=== PATIENT | female | born 1960 | race American Indian/Alaskan Native ===

== ENCOUNTER 2018-11-04 15:18 | Outpatient (CLI) | payer OTHER ==
--- NOTE | 2018-11-04 16:03 | Mammography Report ---
BILATERAL DIGITAL SCREENING MAMMOGRAM with CAD: 11/04/18 15:18:00 CLINICAL: Routine screening. COMPARISON:08/27/09 FINDINGS: The breasts are heterogeneously dense, which may obscure small masses and the breast density is sufficient to limit the sensitivity of mammography. No mass, architectural distortion or suspicious calcifications. IMPRESSION: No mammographic evidence of malignancy. BI-RADS CATEGORY: 1 - - Negative RECOMMENDATION: Routine mammographic screening in one year. COMMENT: Patient follow-up letters are generated by our [employer] application.
== END 2018-11-04 15:19 | disposition home or self-care (01) ==
LOC: SPVWC 15:18
PROVIDERS: ATTEND Nurse Practitioner Family
DX: Z12.31 Encounter for screening mammogram for malignant neoplasm of breast (principal); J45.909 Unspecified asthma, uncomplicated; M19.90 Unspecified osteoarthritis, unspecified site; Z90.710 Acquired absence of both cervix and uterus
CPT/HCPCS: 77067

== ENCOUNTER 2020-11-13 21:24 | Emergency (ER) | payer OTHER ==
[2020-11-13 22:09] LABS: Basophils % (Auto) 0.7 % (0.0-1.8); Hematocrit 37.7 % (30.3-42.9); Hemoglobin 12.4 gm/dl (10.1-14.3); Lymphocytes # (Auto) 1.4 K/mm3 (1.2-5.4); Lymphocytes % (Auto) 38.5 % (13.4-35.0); Mean Corpuscular HGB Conc 33 % (30-34); Mean Corpuscular Volume 96 fl (79-97); Monocytes # (Auto) 0.5 K/mm3 (0.0-0.8); Monocytes % (Auto) 12.1 % (0.0-7.3); Platelet Count 169 K/mm3 (140-440); Red Blood Count 3.92 M/mm3 (3.65-5.03); Red Cell Distribution Width 13.8 % (13.2-15.2)
[2020-11-13] MEDS ORDERED: HYDROcodone/ACETAMINOPHEN 5-325 MG TAB PO ONE (22:19)
[2020-11-13] MEDS ORDERED: predniSONE 20 MG TAB PO ONE (22:19)
[2020-11-13] MEDS ORDERED: ONDANSETRON 4 MG ODT TAB PO ONE (22:20)
[2020-11-13 22:28] LABS: Alanine Aminotransferase 34 units/L (7-56); Albumin 3.8 g/dL (3.9-5); BUN/Creatinine Ratio 9; Blood Urea Nitrogen 9 mg/dL (7-17); Calcium 8.6 mg/dL (8.4-10.2); Hemolysis Index 5
--- NOTE | 2020-11-14 00:27 | Emergency Department Report ---
ED Extremity Problem HPI - General Chief complaint: Extremity Injury, Lower Stated complaint: SWOLLEN ANKLES/FEET PAIN Source: patient Mode of arrival: Ambulatory Limitations: Physical Limitation - History of Present Illness Initial comments: Patient is a 60-year-old -[place] female with a history of chronic osteoarthritis, chronic back pain, fibromyalgia, asthma and migraine headaches who presents to the ED with complaint of acute exacerbation of her chronic back pain, bilateral ankle pain and swelling that radiates proximally to the bilateral calves for the last 2 weeks, worse in the last 2 days. Patient states that she takes gabapentin 600 mg 3 times a day for her chronic pain and also takes salicylate 500 mg tablets at home. Patient states that she had been taking these medications with no relief. Patient denies dizziness, syncope, chest pain, shortness of breath, abdominal pain, fall, traumatic injury, heavy lifting, nausea, vomiting, numbness and tingling or weakness of upper and lower extremities bilaterally, saddle paresthesia, urinary retention, bowel incontinence, fever and chills. MD Complaint: extremity pain (Bilateral ankle pain and swelling), extremity swelling (Bilateral ankle swelling and pain), joint swelling (Bilateral ankle), joint paint (Bilateral ankle), other (Bilateral lower leg pain) -: Sudden, week(s) (1) Location: bilateral lower extremity History of Same: Yes (chronic pain due to osteoarthritis and Fibromyalgia) -: No myalgia, Yes arthralgia, No fever, No associated dyspnea, No associated chest pain Radiation: proximal, distal Severity scale (0 -10): 10 Quality: aching, sharp Consistency: constant Improves with: nothing Worsens with: weight bearing, walking, exertion, palpation Associated Symptoms: denies other symptoms, arthralgias. denies: chest pain, shortness of breath, fever, myalgias, rash - Related Data Home Medications Medication Instructions Recorded Confirmed Last Taken Beclomethasone Dipropionat(Nf) 1 inhalation INHALATION BID 08/20/14 08/24/14 08/24/14 05:30 [Qvar 40MCG] 1 Fluticasone/Salmeterol [Advair 1 inhalation INHALATION BID 08/20/14 08/24/14 1 05:30 Diskus 250-50 mcg] 1 SUMAtriptan SUCCINATE [Imitrex] 1 tab PO PRN PRN 08/21/14 08/21/14 Unknown Previous Rx's Medication Instructions Recorded Last Taken Type Baclofen 20 mg PO Q8H PRN #24 tablet 11/14/20 Unknown Rx Naproxen 500 mg PO Q12H PRN #30 tablet 11/14/20 Unknown Rx predniSONE [Deltasone] 40 mg PO QDAY #12 tab 11/14/20 Unknown Rx traMADoL [Ultram] 50 mg PO Q6HR PRN #12 tablet 11/14/20 Unknown Rx Allergies Allergy/AdvReac Type Severity Reaction Status Date / Time sulfamethoxazole Allergy Rash Verified 08/20/14 13:12 [From ] trimethoprim [From ] Allergy Rash Verified 08/20/14 13:12 ED Review of Systems ROS: Stated complaint: SWOLLEN ANKLES/FEET PAIN Other details as noted in HPI Constitutional: denies: chills, fever Eyes: denies: eye pain, eye discharge, vision change ENT: denies: ear pain, throat pain Respiratory: denies: cough, shortness of breath, wheezing Cardiovascular: denies: chest pain, palpitations Endocrine: no symptoms reported Gastrointestinal: denies: abdominal pain, nausea, diarrhea Genitourinary: denies: urgency, dysuria, discharge Musculoskeletal: joint swelling (Bilateral ankle swelling), arthralgia (Bilateral lower extremity pain with swelling bilateral ankle joints). denies: back pain, myalgia Skin: denies: rash, lesions Neurological: denies: headache, weakness, paresthesias Psychiatric: denies: anxiety, depression Hematological/Lymphatic: denies: easy bleeding, easy bruising ED Past Medical Hx - Past Medical History Previous Medical History?: Yes Hx Arthritis: Yes Hx Headaches / Migraines: Yes (migraines) Hx Asthma: Yes Hx COPD: No Hx Tuberculosis: No Hx HIV: No Additional medical history: Fibromyalgia - Surgical History Past Surgical History?: Yes Additional Surgical History: Exporatory Lap. . Back Surgery - Social History Smoking Status: Never Smoker Substance Use Type: None - Medications Home Medications: Home Medications Medication Instructions Recorded Confirmed Last Taken Type Beclomethasone Dipropionat(Nf) 1 inhalation INHALATION BID 08/20/14 08/24/14 08/24/14 05:30 History [Qvar 40MCG] 1 Fluticasone/Salmeterol [Advair 1 inhalation INHALATION BID 08/20/14 08/24/14 08/24/14 05:30 History Diskus 250-50 mcg] 1 SUMAtriptan SUCCINATE [Imitrex] 1 tab PO PRN PRN 08/21/14 08/21/14 Unknown History Baclofen 20 mg PO Q8H PRN #24 tablet 11/14/20 Unknown Rx Naproxen 500 mg PO Q12H PRN #30 tablet 11/14/20 Unknown Rx predniSONE [Deltasone] 40 mg PO QDAY #12 tab 11/14/20 Unknown Rx traMADoL [Ultram] 50 mg PO Q6HR PRN #12 tablet 11/14/20 Unknown Rx ED Physical Exam - General Limitations: Physical Limitation General appearance: alert, in no apparent distress - Head Head exam: Present: atraumatic, normocephalic, normal inspection - Eye Eye exam: Present: normal appearance, PERRL, EOMI Pupils: Present: normal accommodation - ENT ENT exam: Present: normal exam, normal orophraynx, mucous membranes moist, TM's normal bilaterally, normal external ear exam - Neck Neck exam: Present: normal inspection, full ROM - Respiratory Respiratory exam: Present: normal lung sounds bilaterally. Absent: respiratory distress, wheezes, rales, rhonchi, stridor, chest wall tenderness, accessory muscle use, decreased breath sounds, prolonged expiratory - Cardiovascular Cardiovascular Exam: Present: regular rate, normal rhythm, normal heart sounds. Absent: systolic murmur, diastolic murmur, rubs, gallop - GI/Abdominal GI/Abdominal exam: Present: soft, normal bowel sounds. Absent: tenderness, guarding, rebound, hyperactive bowel sounds, hypoactive bowel sounds, organomegaly - Extremities Exam Extremities exam: Present: normal inspection, full ROM, tenderness (Palpable bilateral ankle joint tenderness, mild bilateral lower leg tenderness and bilateral ankle swelling), normal capillary refill, joint swelling (Bilateral ankle swelling), calf tenderness (Bilateral mild calf tenderness) - Back Exam Back exam: Present: normal inspection, full ROM, tenderness (Palpable lumbosacral paraspinal musculoskeletal tenderness). Absent: CVA tenderness (R), CVA tenderness (L), muscle spasm, paraspinal tenderness, vertebral tenderness - Neurological Exam Neurological exam: Present: alert, oriented X3, normal gait - Psychiatric Psychiatric exam: Present: normal affect, normal mood, anxious - Skin Skin exam: Present: warm, dry, intact, normal color. Absent: rash ED Course Vital Signs 11/13/20 11/13/20 11/13/20 21:30 21:33 22:30 Temperature 98.4 F 98.4 F Pulse Rate 69 64 Respiratory 18 18 18 Rate Blood Pressure 180/52 Blood Pressure 180/52 [Left] O2 Sat by Pulse 99 99 Oximetry ED Medical Decision Making - Lab Data Result diagrams: 11/13/20 21:54 11/13/20 21:54 - Radiology Data Radiology results: report reviewed, image reviewed Bilateral lower extremity Doppler ultrasound showed no sonographic evidence of DVT. - Medical Decision Making This is a 60-year-old -[place] female with a history of chronic osteoarthritis, chronic back pain, fibromyalgia, asthma and migraine headaches who presents to the ED with complaint of acute exacerbation of her chronic back pain, bilateral ankle pain and swelling that radiates proximally to the bilateral calves for the last 2 weeks, worse in the last 2 days. Patient states that she takes gabapentin 600 mg 3 times a day for her chronic pain and also takes salicylate 500 mg tablets at home. Patient states that she had been t aking these medications with no relief. In the ED, patient is alert and oriented x3 and is not in distress. Lab test results were reviewed and are all nonactionable. Patient was treated for pain in the ED and on reevaluation, patient's pain is well controlled medications. Bilateral lower extremity Doppler ultrasound showed no sonographic evidence of DVT. Patient was therefore discharged home on pain medications and advised to follow-up with her primary care physician in 7 to 10 days for reevaluation or return to the ED immediately if symptoms get worse. - Differential Diagnosis osteoarthritis; chronic pain syndrome; DVT; muscle spasm; muscle strain Critical care attestation.: If time is entered above; I have spent that time in minutes in the direct care of this critically ill patient, excluding procedure time. ED Disposition Clinical Impression: Chronic osteoarthritis, Muscle spasms of both lower extremities, Chronic pain syndrome Disposition: - TO HOME OR SELFCARE Is pt being admited?: No Does the pt Need Aspirin: No Condition: Stable Instructions: Muscle Cramps and Spasms, [id number], Arthritis, [id number], Chronic Pain, Adult Additional Instructions: Bilateral lower extremity Doppler ultrasound showed no sonographic evidence of DVT. Your symptoms are likely due to chronic osteoarthritis affecting multiple joints. Therefore take medications with food, drink plenty of fluids and follow-up with your primary care physician in 7 to 10 days for reevaluation or return to the ED immediately if symptoms get worse. Prescriptions: Baclofen 20 mg PO Q8H PRN #24 tablet PRN Reason: Muscle Spasm predniSONE [Deltasone] 40 mg PO QDAY #12 tab Naproxen 500 mg PO Q12H PRN #30 tablet PRN Reason: Pain , Severe (7-10) traMADoL [Ultram] 50 mg PO Q6HR PRN #12 tablet PRN Reason: Pain Referrals: [facility] [Provider Group] - 3-5 Days Time of Disposition: 00:30 Print Language: PRYDEINIG
[2020-11-14 00:50] VITALS: BP 138/82
--- NOTE | 2020-11-14 07:37 | Vascular Lab Report ---
DUPLEX DOPPLER LOWER EXTREMITY VEINS, BILATERAL INDICATION: Bilateral lower extremity pain and swelling. TECHNIQUE: Duplex doppler imaging was performed through the veins of both lower extremities using venous tony payton and other maneuvers. COMPARISON: None available. FINDINGS: Right Common Femoral vein: Negative. Right Superficial Femoral vein: Negative. Right Popliteal vein: Negative. Right Calf veins: Negative. Left Common Femoral vein: Negative. Left Superficial Femoral vein: Negative. Left Popliteal vein: Negative. Left Calf veins: Negative. Additional findings: None. IMPRESSION: 1. No sonographic evidence for DVT in either lower extremity. Signer Name: Rossy Rocha MD Signed: 11/14/2020 1:48 AM Workstation Name: [id number]
== END 2020-11-14 00:50 | disposition home or self-care (01) ==
LOC: ED 21:24
DX: M62.831 Muscle spasm of calf (principal); G89.29 Other chronic pain; M19.91 Primary osteoarthritis, unspecified site; G43.909 Migraine, unspecified, not intractable, without status migrainosus; J45.909 Unspecified asthma, uncomplicated; Z98.890 Other specified postprocedural states; Z79.899 Other long term (current) drug therapy; Z88.8 Allergy status to other drugs, medicaments and biological substances
CPT/HCPCS: 36415; 80053; 85025; 93970; 99284; J7512; Q0162